=== PATIENT | female | born 1975 | race Hispanic/Latino ===

== ENCOUNTER 2017-02-18 10:10 | Emergency (ER) | payer OTHER ==
[~2017-02-18] VITALS: Ht 149.9 cm; Wt 88.5 kg
[2017-02-18 10:23] VITALS: BP 108/72
[2017-02-18] MEDS ORDERED: BACTROBAN15 GM TOP (11:22)
--- NOTE | 2017-02-18 11:23 | ED ANKLE/FOOT INJURY COMPLAINT ---
History of Present Illness General Chief Complaint: Laceration Procedure Stated Complaint: FOOT LAC Source: patient Exam Limitations: no limitations Vital Signs & Intake/Output Vital Signs & Intake/Output Vital Signs Date Time Temp Pulse Resp B/P B/P Pulse O2 O2 Flow FiO2 Mean Ox Delivery Rate 02/18 1023 98.1 62 18 108/72 98 Room Air Allergies Coded Allergies: NO KNOWN ALLERGIES (11/19/12) Triage Note: PT STATS THAT HS EDROPPED A CHAIR ON HER TOP R FOOT AND HAS A CUT. INCIDENT HAPPENED A WEEK AGO, WOUND HEALING BUT NOTED WITH SOME DRAINAGE. PT CAN AMBULATE WIOTHOUT DIFFICULTY, DENIES PAIN Triage Nurses Notes Reviewed? yes Occurred: last week Duration: week(s): (1) Timing: no prior history Severity: mild Severity Numbers: 1 Pain/Injury Location: Right: Foot. Method of Injury: laceration No Modifying Factors: none : No Patient currently breastfeeds: No HPI: Patient is a 41-year-old female presenting to the emergency department with chief complaint of laceration to right foot that happened 1 week ago. Reports that his been healing up but is concerned that it may be infected. Denies fevers or chills. No nausea or vomiting. Up-to-date with tetanus. No numbness or tingling. (JIMMY ALMANZA) Reconcile Medications Mupirocin Calcium (Bactroban) 2 % CREAM..G. 1 HERMINIA TOP BID laceration apply to affected area(s) (ZIA RAMOS,HAN) Past History Travel History Traveled to [place] past 21 day No Medical History Any Pertinent Medical History? see below for history Neurological: NONE EENT: NONE Cardiovascular: NONE Respiratory: NONE Gastrointestinal: NONE Hepatic: NONE Renal: NONE Musculoskeletal: NONE Psychiatric: NONE Endocrine: NONE Blood Disorders: NONE Cancer(s): NONE PHARMACIST CRITICAL CARE/Reproductive: NONE Surgical History Surgical History: non-contributory Psychosocial History What is your primary language Occitan Tobacco Use: Current Daily Use Daily Tobacco Use Amount/Type: => 5 Cigarettes daily ETOH Use: denies use Illicit Drug Use: denies illicit drug use Family History Hx Contributory? No (JIMMY ALMANZA) Review of Systems Review of Systems Constitutional: Reports: no symptoms. Comments Review of systems: See HPI, All other systems negative. Constitutional, no chills fever or weight loss HEENT: No visual changes no sore throat no congestion Cardiovascular: No chest pain ,palpitation Skin, no jaundice no rashes Respiratory: No dyspnea cough sputum or hemoptysis GI: No nausea no vomiting Muscle skeletal: no back pain, no neck pain, Neurologic: No numbness Immunology: No splenectomy or history of AIDS (JIMMY ALMANZA) Physical Exam Physical Exam General Appearance: well developed/nourished, no apparent distress, alert, awake , comfortable Leg/Knee/Thigh Left: normal range of motion, normal inspection Comments: Well-developed well-nourished person in no acute distress HEENT: Nose is atraumatic. Neck: Normal inspection Back: Nontender, no CVA tenderness. Full range of motion Cardiovascular: Regular rate and rhythms no murmurs rubs or gallops, normal JVP Respiratory: No respiratory distress. Extremity: No edema, no calf tenderness to palpation, normal and equal pulses. Capillary refill is intact in right lower extremity. Neuro: Alert oriented x3, motor sensory normal intact in lower extremities bilaterally. Skin: Healing 3 cm linear, scabbing laceration noted on the dorsum of the right foot. Located over the fourth metatarsal. No surrounding erythema or edema. Psych: Mood and affect is normal, memory and judgment is normal. (JIMMY ALMANZA) Progress Differential Diagnosis: laceration, abrasion, contusion, cellulitis, poor wound healing Plan of Care: Patient will be discharged with topical antibiotic ointment. No surrounding erythema or edema and nontender palpation. Unlikely cellulitic. Patient follows with PCP. Patient nontoxic. (JIMMY ALMANZA) Departure Departure Time of Disposition: 1120 Disposition: HOME OR SELF CARE Condition: Stable Clinical Impression Primary Impression: Laceration Referrals: [facility] D[facility] (PCP/Family) Additional Instructions: Apply a topical ointment twice a day as directed. Keep clean and dry. Do not put peroxide. Return for worsening symptoms or concerns. Departure Forms: Customer Survey General Discharge Information Prescriptions: Current Visit Scripts Mupirocin Calcium (Bactroban) 1 HERMINIA TOP BID #30 GM apply to affected area(s) (JIMMY ALMANZA) PA/ASSISTANT OPERATIONS MANAGER Co-Sign Statement Statement: ED Attending supervision documentation- [] I saw and evaluated the patient. I have also reviewed all the pertinent lab results and diagnostic results. I agree with the findings and the plan of care as documented in the PA's/ASSISTANT OPERATIONS MANAGER's documentation. [X] I have reviewed the ED Record and agree with the PA's/ASSISTANT OPERATIONS MANAGER's documentation. [] Additions or exceptions (if any) to the PAs/ASSISTANT OPERATIONS MANAGER's note and plan are summarized below: [] (ZIA RAMOS,HAN)
== END 2017-02-18 11:32 ==
LOC: ERH 10:10
DX: S91.311A Laceration without foreign body, right foot, initial encounter (principal); W20.8XXA Other cause of strike by thrown, projected or falling object, initial encounter; Y93.9 Activity, unspecified; Y92.9 Unspecified place or not applicable